=== PATIENT | female | born 1985 | race Caucasian/White ===

== ENCOUNTER 2025-03-16 14:46 | Emergency (ER) | payer OTHER, SELFPAY ==
--- NOTE | ~2025-03-16 | XR_ITS ---
XR ankle RT min 3V Ordering provider: Elda Plasencia NP History: . PAIN/SWELLING OF RT FOOT/ANKLE . Comparison: None. FINDINGS: BONES: No acute fracture or dislocation. Lucency seen in the lateral malleolus most likely summation shadow with no definite cortical disruption seen. JOINT SPACES: Normal. SOFT TISSUES: Soft tissue swelling over the lateral malleolus. IMPRESSION: No definite acute osseous abnormality of the right ankle. Reviewed, dictated and finalized at location A.
--- NOTE | ~2025-03-16 | XR_ITS ---
XR foot RT min 3V Ordering provider: Elda Plasencia NP History: . twisted foot . Comparison: None. FINDINGS: BONES: Fracture at the base of the fifth metatarsal bone. No other fractures seen. JOINT SPACES: Normal. No tarsal coalition. SOFT TISSUES: Normal. IMPRESSION: Fracture at the base of the fifth metatarsal bone. Reviewed, dictated and finalized at location A.
[2025-03-16 15:00] VITALS: BP 127/68; PULSE 67; RESP 16; TEMP 36.6; O2SAT 100
--- NOTE | 2025-03-16 15:04 | ED_ITS ---
HPI - Extremity Injury (Lower) General Chief Complaint: Extremity Injury, Lower Stated Complaint: R FOOT INJURY Time Seen by Provider: 03/16/25 15:05 Source: patient, RN notes reviewed and old records reviewed Mode of arrival: ambulatory (with ortho boot on) Limitations: no limitations History of Present Illness HPI Narrative: 39 year old female who presents to [facility] with complaints of injury to her right foot and ankle when she was maneuvering on step stool and she inverted her foot on Sunday while cleaning . Patient has pain and swelling to the right foot and ankle and bruising noted to medial and lateral foot below the lateral and medial malleolus, Patient reports that she ordered herself a post op boot from [employer] and she has been wearing this when up. Patient states that she has elevated her foot, used ice to foot and has taken some Ibuprofen MD complaint: ankle injury (right) and foot injury Onset (ago): day(s) (2) Injury: Right: ankle and foot Type of Injury: inversion Place: other (working on house ) Severity scale (1-10): 8 Exacerbating factors: weight bearing Treatments prior to arrival: cold therapy Related Data Home Medications ?Medication ?Instructions ?Recorded ?Confirmed ?Last Taken ?Type levonorgestrel 20.4 mcg/24 hr (up 1 device intrauterine ONCE 09/07/23 11/02/23 Unknown History to 8 yrs) 52 mg intrauterine device Allergies Allergy/AdvReac Type Severity Reaction Status Date / Time No Known Allergies Allergy Verified 03/16/25 15:06 Review of Systems Review of Systems: CONSTITUTIONAL: Denies fever, chills, or sweats. EYES: Denies visual changes, redness, or discharge. ENT: Denies rhinorrhea, congestion, sore throat, or otalgia. CARDIOVASCULAR: Denies chest pain, palpitations, or edema. RESPIRATORY: Denies cough or dyspnea. GASTROINTESTINAL: Denies abdominal pain, nausea, vomiting, or diarrhea. GENITOURINARY: Denies dysuria or hematuria. SKIN: Denies rash or itching. MUSCULOSKELETAL: Denies back pain,reports pain to right foot and ankle joint pain, or myalgia. NEUROLOGIC: Denies headache, numbness, or weakness. PSYCHIATRIC: Denies anxiety or depression. All systems reviewed & are unremarkable except as noted in HPI and below PMFSH Past Medical History Medical History Pontiac syndrome Bloating Loose stools Hyperbilirubinemia Frequent headaches Dysplasia of cervix MATEO (iron deficiency anemia) Surgical History Surgical History H/O dilation and curettage H/O section H/O breast augmentation Family History Family History Mother Hypertension Grandparent Pancreatic cancer Social History Social History Smoking status: Current some day smoker Comments At time of signature, agree with nursing past medical, surgical, social and family history. There is no relevant family history pertinent to the presenting complaint Exam Narrative: GENERAL: Well-appearing, well-nourished, and in no acute distress. HEAD: Normocephalic, atraumatic. EYES: PERRLA and EOMI. ENT: Nares clear, no rhinorrhea or epistaxis. Mucous membranes moist. NECK: Supple. CHEST: Clear to auscultation. No respiratory distress. HEART: Regular rate and rhythm. No murmur heard. Normal peripheral pulses. ABDOMEN: Soft, nontender, nondistended, normal active bowel sounds. EXTREMITIES: Normal range of motion. No edema. SKIN: Warm, dry, no rash. NEURO: No focal deficits. Alert and oriented x3. Course Course Emergency Course: Patient is aware of diagnosis, understands and agrees to treatment plan.? Anticipatory guidance given.? Patient agrees to follow-up as directed and is aware of reasons to seek care at the emergency department. Portions of this record may have been created with voice recognition software Level of Care: Express Care Visit Vital Signs Vital signs: Vital Signs Temperature 36.6 C 03/16/25 15:00 Pulse Rate 67 03/16/25 15:00 Respiratory Rate 16 03/16/25 15:00 Blood Pressure 127/68 03/16/25 15:00 Pulse Oximetry 100 03/16/25 15:00 Temperature 36.6 C 03/16/25 15:00 Pulse Rate 67 03/16/25 15:00 Respiratory Rate 16 03/16/25 15:00 Blood Pressure 127/68 03/16/25 15:00 Pulse Oximetry 100 03/16/25 15:00 Reviewed MDM - Extremity Injury (Lower) Differential Diagnosis Differential diagnosis: Likely ankle sprain and strain, fracture of toe, ankle fracture and other (foot fracture) Medical Records Attestation: I reviewed the patient's medical records. Imaging Data Attestation: I personally reviewed and interpreted this imaging study as fo llows: My impression: fracture at the base of 5th metatarsal bone right foot, soft tissue swelling lateral malleolus Radiologist's impression: [facility] [place] [id number] [place] [address] XRay Report Signed Patient: Sherry Floyd : 1985 MR#: [id number] Age: 39 Acct:[id number] Loc: [facility] ADM Date: 03/16/25Attending Dr: Ordering Physician: Elda Plasencia APRN Date of Service: 03/16/25 Procedure(s): XR foot RT min 3V Accession Number(s): [id number] cc: Elda Plasencia APRN; UNKNOWN,DOCTOR~ XR foot RT min 3V Ordering provider: Elda Plasencia NP History: . twisted foot . Comparison: None. FINDINGS: BONES: Fracture at the base of the fifth metatarsal bone. No other fractures seen. JOINT SPACES: Normal. No tarsal coalition. SOFT TISSUES: Normal. IMPRESSION: Fracture at the base of the fifth metatarsal bone. Reviewed, dictated and finalized at location A. Please be advised this is a medical document. It is intended for gtfw-ua-[id number] communication. It is written in medical language and may contain unfamiliar abbreviations or verbiage. Medical documents are intended to carry relevant information, facts as evident, and the clinical opinion of the practitioner at the time of the encounter. This report may have been done utilizing a voice recognition system. Attempts have been made to correct errors. However, there may be uncorrected grammatical, spelling, and recognition errors present. The file time of this note does not necessarily represent the time of service. Dictated By: Jose Jones MD 03/16/25 1537 Signed By: <Electronically signed by Jose Jones MD in OV> [address] [place] [address] XRay Report Signed Patient: Sherry Floyd : 1985 MR#: [id number] Age: 39 Acct:[id number] Loc: [facility] ADM Date: 03/16/25Attending Dr: Ordering Physician: Elda Plasencia APRN Date of Service: 03/16/25 Procedure(s): XR ankle RT min 3V Accession Number(s): [id number] cc: Elda Plasencia APRN; UNKNOWN,DOCTOR~ XR ankle RT min 3V Ordering provider: Elda Plasencia NP History: . PAIN/SWELLING OF RT FOOT/ANKLE . Comparison: None. FINDINGS: BONES: No acute fracture or dislocation. Lucency seen in the lateral malleolus most likely summation shadow with no definite cortical disruption seen. JOINT SPACES: Normal. SOFT TISSUES: Soft tissue swelling over the lateral malleolus. IMPRESSION: No definite acute osseous abnormality of the right ankle. Reviewed, dictated and finalized at location A. Please be advised this is a medical document. It is intended for fqgq-mp-[id number] communication. It is written in medical language and may contain unfamiliar abbreviations or verbiage. Medical documents are intended to carry relevant information, facts as evident, and the clinical opinion of the practitioner at the time of the encounter. This report may have been done utilizing a voice recognition system. Attempts have been made to correct errors. However, there may be uncorrected grammatical, spelling, and recognition errors present. The file time of this note does not necessarily represent the time of service. Dictated By: Jose Jones MD 03/16/25 1535 Signed By: <Electronically signed by Jose Jones MD in OV> Critical Care Time Critical Care Time Critical Care Time: No Discharge Plan Discharge Clinical Impression: Right ankle swelling Fracture of base of fifth metatarsal bone Qualifiers: Encounter type: initial encounter Fracture type: closed Laterality: right Q ualified Code(s): S92.351A - Displaced fracture of fifth metatarsal bone, right foot, initial encounter for closed fracture Patient Disposition: Home Condition: Stable Instructions: Antibiotic Form, Foot Fracture in Adults (ED) Additional Instructions: Elastic wrap and orthopedic boot as directed until seen by Ortho Tylenol for lesser pain Ibuprofen regularly for the next 2-3 days for the inflammation Follow-up with orthopedic surgeon Dr Fishman recreation director for [facility] located at [address] [place] [address] Dr Pete [address] [place] [address] [phone] or ortho of your choice Follow-up with PCP if further problems or concerns Ice to the area 20-30 minutes 4-6 times a day Elevate above heart If your symptoms persist, change or worsen significantly before you can contact your personal physician then please, without delay, go to the emergency department for further evaluation. Follow-up with PCP in 7-10 days or sooner if needed Follow up with PCP soon in regards to your blood pressure which is elevated above threshold for referral. Blood pressure above 120/80 may indicate pre- hypertension. minimal systolic [id number] Patient Language: Latvian Prescriptions: No Action levonorgestrel 20.4 mcg/24 hrs (8 yrs) 52 mg intrauterine device 1 device intrauterine ONCE Rx Instructions: as a single dose Follow-up/Referrals: Saúl Fishman MD [Physician] - (fracture right foot base of 5th metatarsal) UNKNOWN,DOCTOR [Primary Care Provider] - Time of Disposition: 15:53 Quality [place] Coma Scale Eyes: Open Verbal: Oriented and Alert Motor: Follows Commands Ortiz Coma Total Score: 15
== END 2025-03-16 16:00 | disposition home or self-care (01) ==
PROVIDERS: Emergency Provider Registered Nurse
DX: M25.471 Effusion, right ankle (principal); S92.351A Displaced fracture of fifth metatarsal bone, right foot, initial encounter for closed fracture; X50.9XXA Other and unspecified overexertion or strenuous movements or postures, initial encounter; E80.4 Gilbert syndrome; F17.200 Nicotine dependence, unspecified, uncomplicated
CPT/HCPCS: 73610; 73630; 99213; G0463